=== PATIENT | male | born 1960 | race Caucasian/White ===

== ENCOUNTER 2019-08-12 11:00 | Inpatient (IN) | payer BC ==
--- NOTE | 2019-08-01 12:25 | HP ---
HISTORY AND PHYSICAL: DATE OF SURGERY: 08/12/19 DATE OF OFFICE VISIT: 08/01/19 SURGEON: Criss Hernandez MD.* (DICTATED BY EVY WILLS) PROCEDURE: Right total hip arthroplasty. CHIEF COMPLAINT: Right hip pain. HISTORY OF PRESENT ILLNESS: Mr. Marquez is a 58-year-old gentleman with continued complaints of right hip pain. He has failed conservative treatment and elected to proceed with a right total hip arthroplasty. PAST MEDICAL HISTORY: Hypertension, GERD, and AFib. PAST SURGICAL HISTORY: Cardiac ablation, partial left total knee arthroplasty, and left finger surgery. CURRENT MEDICATIONS: 1. Pantoprazole 30 and 40 mg a day. 2. Lisinopril 40 mg a day. 3. Meloxicam 15 mg a day. 4. Aspirin 325 two tabs twice a day. ALLERGIES: No known drug allergies. FAMILY HISTORY: Alzheimer's, hypertension, and stroke. SOCIAL HISTORY: He is a 58-year-old gentleman who lives alone. He does not smoke or use drugs. He uses occasional alcohol. REVIEW OF SYSTEMS: A complete 14-point review of systems was reviewed with the patient and is positive for GERD. He denies a history of DVT, PE, hepatitis, HIV or anesthesia problems. PHYSICAL EXAMINATION GENERAL: He is well developed, well nourished, in no acute distress. VITAL SIGNS: He stands 74 inches tall and weighs 288 pounds. His blood pressure 142/90, his heart rate is 82. HEENT: Normocephalic, atraumatic. NECK: Supple. No palpable lymph nodes. PULMONARY: Lungs are clear to auscultation bilaterally. CARDIO: Regular rate and rhythm. Strong S1, S2. ABDOMEN: Soft and nontender. MUSCULOSKELETAL: Right Lower Extremity: The skin is intact. There are no open wounds. No abrasions. He walks with an antalgic-type gait favoring his right hip. He has decreased internal and external rotation of the right hip. He is able to dorsiflex and plantar flex. He has 2+ dorsalis pedis pulse and intact sensation. ASSESSMENT AND PLAN: Mr. Marquez is a 58-year-old gentleman with end-stage osteoarthritis of the right hip. He has failed conservative treatment and elected to proceed with a right total hip arthroplasty. His surgery is scheduled for 08/12/[address] Hernandez. The risks and benefits were discussed with the patient at today's visit and all of his questions were answered. He will follow up with Dr. Hernandez 2 weeks after the surgery. EVY WILLS [id number]/[facility] #: [id number] ANDREW
[~2019-08-12 11:00] MED LIST: Acetaminophen IV 1GM/100ML * 1,000 MG/100 ML VIAL IVPB ONE; Buffered Lidocaine 1% SYRIN* 1 ML/SYRINGE INTRADERM ONE; Dexamethasone IV* 4 MG/ML 1 ML (4 MG) IV SLOW PU ONE; Gabapentin CAP(*) 300 MG PO ONE; Lactated Ringers 1000 ML Bag* 1,000 ML IV SCH; Tranexamic Acid 1,000 MG in NS 0.9% 50 ML* (outpatient use) IV SCH; celeCOXIB CAP* 200 MG PO ONE
[2019-08-12] MEDS ORDERED: Dexamethasone IV* 4 MG/ML 1 ML (4 MG) ONE (12:15)
[2019-08-12] MEDS ORDERED: Gabapentin CAP(*) 300 MG ONE (12:16)
[2019-08-12] MEDS ORDERED: ceFAZolin 2 GM in NS PREMIX(*) 2 GM/100 ML BAG IVPB ONE (12:16)
[2019-08-12] MEDS ORDERED: celeCOXIB CAP* 200 MG ONE (12:16)
--- OUTSIDE RECORDS SUMMARY | 2019-08-12 12:16 | XMS REPORT | Continuity of Care Document ---
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 Onset: 05/12/2019 Localized, primary osteoarthritis Criss Hernandez M.D. Onset: 05/12/2019 Localized, primary osteoarthritis of the pelvic Criss Hernandez M.D. Onset: 02/2019 region and thigh Social History Type Date Description Comments Sex Unknown ETOH Use Occasionally consumes alcohol Tobacco Use Start: Unknown Patient has never smoked Recreational Drug Use Denies Drug Use Smoking Status Reviewed: 08/01/19 Patient has never smoked Exercise Type/Frequency Exercises regularly Allergies, Adverse Reactions, Alerts Description No Known Drug Allergies Medications Active Medications SIG Qnty Indications Ordering Provider Date Oxycodone-Acetaminophe 1-2 tabs by 60tabs M16.11 Criss Hernandez M.D. 2018 n mouth every 12 5-325mg Tablets hours as needed for pain Pantoprazole Sodium 1 tab by mouth Sweet, Sara 40mg once daily M.MD Grey DR Lisinopril 1 tab by mouth Sweet, Sara 40mg Tablets once daily M.MD Amlodipine Besylate 1 tab by mouth Sweet, Sara 10mg once daily M.MD Tablets Aspirin Adult 2 tabs by mouth Unknown 325mg twice daily Tablets Meloxicam 1 by mouth Unknown 15mg Tablets every day Medications Administered in Office Medication SIG Qnty Indications Ordering Provider Date No Injection Criss Hernandez M.D. 05/12/2019 Injection Depomedrol 40MG Criss Hernandez M.D. 05/12/2019 Injection Celestone 3 mg and 3mg David Huang MD 04/18/2019 Injection Immunizations Description No Information Available Vital Signs Date Vital Result Comment 08/01/2019 9:00am Height 74 inches 6'2" Weight 288.00 lb Heart Rate 82 /min BP Systolic 142 mmHg BP Diastolic 90 mmHg Respiratory Rate 18 /min Body Temperature 97.0 F Pain Level 2 BMI (Body Mass Index) 37.0 kg/m2 05/12/2019 8:33am Height 74 inches 6'2" Weight 291.00 lb Heart Rate 70 /min BP Systolic 150 mmHg BP Diastolic 88 mmHg Body Temperature 97.0 F Pain Level 3 BMI (Body Mass Index) 37.4 kg/m2 Results Test Date Facility Test Result H/L Range Note Xray 05/12/2019 Physician Surgeon In House Inj/Aspir Major JT Or Bursa W/ <pending> US Procedures Date Code Description Status 08/01/2019 09475 FX OS Care (Calcaneal) Completed 05/12/201930013 Inj/Aspir Major JT Or Bursa W/ US Completed 04/18/2019 12184 Xray Knee 3 Views Completed 04/18/201920163 Inject/Drain Joint/Bursa Major W/O US Completed Medical Devices Description No Information Available Encounters Type Date Location Provider Dx Diagnosis Office Visit 05/12/2019 [facility] Criss Hernandez, M16.11 Unilateral primary 8:30a at [facility] osteoarthritis, right hip M17.11 Unilateral primary osteoarthritis, right knee Z96.652 Presence of left artificial knee joint M25.551 Pain in right hip M25.561 Pain in right knee M25.462 Effusion, left knee Office Visit 04/18/2019 [facility] M16.11 Unilateral primary 11:15a Orthopedics at [facility] osteoarthritis, [place] right hip M17.11 Unilateral primary osteoarthritis, right knee Z96.652 Presence of left artificial knee joint M25.551 Pain in right hip M25.561 Pain in right knee Assessments Date Code Description Provider 08/01/2019 M16.11 Unilateral primary osteoarthritis, right hip EVY Dinero 08/01/2019 M25.551 Pain in right hip EVY Dinero 05/12/2019 M16.11 Unilateral primary osteoarthritis, right hip Criss Hernandez M.D. 05/12/2019 M17.11 Unilateral primary osteoarthritis, right knee Criss Hernandez M.D. 05/12/2019 Z96.652 Presence of left artificial knee joint Criss Hernandez M.D. 05/12/2019 M25.551 Pain in right hip Criss Hernandez M.D. 05/12/2019 M25.561 Pain in right knee Criss Hernandez M.D. 05/12/2019 M25.462 Effusion, left knee Criss Hernandez M.D. 04/18/2019 M16.11 Unilateral primary osteoarthritis, right hip David Huang MD 04/18/2019 M17.11 Unilateral primary osteoarthritis, right knee David Huang MD 04/18/2019 Z96.652 Presence of left artificial knee joint David Huang MD 04/18/2019 M25.551 Pain in right hip David Huang MD 04/18/2019 M25.561 Pain in right knee David Huang MD Plan of Treatment Future Appointment(s):08/29/2019 10:15 am - Criss Hernandez M.D. at [facility] at Dyafvc7708/12/2019 12:30 pm - Anastacio Kelley PA-C at [facility] at Zlxvma2808/12/2019 12:30 pm - EVY Dinero at [facility] at Ctjpco5108/12/2019 12:30 pm - Criss Hernandez M.D. at [facility] at Gleenr4508/01/2019 - Cecile Marshall PAM16.11 Unilateral primary osteoarthritis, right hipFollow up:Follow up: 2 weeks after xoaskxzK93.551 Pain in right hipNew Xrays:Hip Right 2 Views And Pelvis 77001 - 72753, Ordered: 08/01/19 Functional Status Description No Information Available Mental Status Description No Information Available Referrals Description No Information Available
--- OUTSIDE RECORDS SUMMARY | 2019-08-12 12:16 | XMS REPORT | Continuity of Care Document ---
:1960 External Reference #:[id number] Author Name Criss Hernandez M.D. 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 n every 12 hours 5-325mg Tablets as needed for pain Pantoprazole Sodium 1 tab by mouth Sweet, Sara 40mg once daily MMD Ramesh Tablets Lisinopril 1 tab by mouth Sweet, Sara 40mg Tablets once daily MMD Ramesh Amlodipine Besylate 1 tab by mouth Sweet, Sara 10mg once daily MMD Ramesh Tablets Aspirin Adult 2 tabs by mouth [...] Test Result H/L Range Note Xray 05/12/2019 Counseling Psychologist In House Inj/Aspir Major JT Or Bursa W/ <pending> US Procedures Date Code Description Status 08/01/2019 96756 FX OS Care (Calcaneal) Completed 05/12/2019 81110 Inj/Aspir Major JT Or Bursa W/ US Completed 04/18/2019 97336 Xray Knee 3 Views Completed 04/18/201940744 Inject/Drain Joint/Bursa Major W/O US Completed Medical Devices Description No Information Available Encounters Type Date Location Provider Dx Diagnosis Office Visit 05/12/2019 [facility] Criss Hernandez M16.11 Unilateral primary 8:30a at [facility] osteoarthritis, right hip M17.11 Unilateral primary osteoarthritis, right knee Z96.652 Presence of left artificial knee joint M25.551 Pain in right hip M25.561 Pain in right knee M25.462 Effusion, left knee Office Visit 04/18/2019 [facility] M16.11 Unilateral primary 11:15a Orthopedics at [facility] osteoarthritis, [place] right hip M17.11 Unilateral primary osteoarthritis, right [...] 10:15 am - Criss Hernandez M.D. at [facility] at Cynfbx9408/12/2019 12:30 pm - Anastacio Kelley PA-C at [facility] at Iiqhzy7708/12/2019 12:30 pm - EVY Dinero at [facility] at Ntoobx1108/12/2019 12:30 pm - Criss Hernandez M.D. at [facility] at Mappin4408/01/2019 - Cecile Marshall PAM16.11 Unilateral primary osteoarthritis, right hipFollow up:Follow up: 2 weeks after tswfeoiM41.551 Pain in right hip Functional Status Description No Information Available Mental Status Description No Information Available Referrals Description No Information Available
[2019-08-12] MEDS ORDERED: Acetaminophen IV 1GM/100ML * 100 ML ONE (13:07)
[2019-08-12] MEDS ORDERED: ROPIVACAINE 5 MG/ML 30 ML BTL (0.5%) ONE ×2 (13:11→14:32)
[2019-08-12] MEDS ORDERED: Ropivacaine (OR use only) 2 MG/ML 10 ML ONE ×2 (13:11→14:33)
[2019-08-12] MEDS ORDERED: Ondansetron INJ* 2 MG/ML VIAL ONE (13:23)
[2019-08-12] MEDS ORDERED: Midazolam* 1 MG/ML 5 ML VIAL (5 MG) ONE (13:23)
[2019-08-12] MEDS ORDERED: KETAMINE HCL* 50 MG/ML 10 ML VIAL ONE (13:23)
[2019-08-12] MEDS ORDERED: fentaNYL* 50 MCG/ML 2 ML VIAL (100 MCG VIAL) ONE ×3 (13:23→17:31)
[2019-08-12] MEDS ORDERED: Propofol* 10 MG/ML 20 ML BTL ONE (13:23)
[2019-08-12] MEDS ORDERED: HYDROmorphone INJ1* 1 MG/ML SYRINGE IV PRN (15:52)
[2019-08-12] MEDS ORDERED: Ondansetron INJ* 2 MG/ML VIAL IV PRN ×2 (15:52→16:20)
[2019-08-12] MEDS ORDERED: DiMENhydriNATE IV* 50 MG/ML VIAL IV PUSH PRN (15:52)
[2019-08-12] MEDS ORDERED: Naloxone* 0.4 MG/ML 1 ML VIAL IV PRN (15:52)
[2019-08-12] MEDS ORDERED: diPHENhydraMINE IV* 50 MG/ML 1 ml VIAL (BENADRYL) IV PRN (16:20)
[2019-08-12] MEDS ORDERED: Polyethylene Glycol 3350* 17 GM PACKET PO PRN (16:20)
[2019-08-12] MEDS ORDERED: diPHENhydraMINE PO* 25 MG PO PRN (16:20)
[2019-08-12] MEDS ORDERED: Ondansetron TAB* 4 MG PO PRN (16:20)
[2019-08-12] MEDS ORDERED: Ondansetron ODT TAB* 4 MG PO PRN (16:20)
[2019-08-12] MEDS ORDERED: Morphine INJ* 2 MG/ML 1 ML SYRINGE (TWO MG - NEW SYRINGE VERSION) IV PRN (16:20)
[2019-08-12] MEDS ORDERED: Magnesium Hydroxide LIQ* 30 ML UDC PO PRN (16:20)
[2019-08-12] MEDS ORDERED: traMADol TAB* 50 MG PO PRN (16:20)
[2019-08-12] MEDS ORDERED: Lactated Ringers 1000 ML Bag* 1,000 ML IV SCH (17:00)
--- NOTE | 2019-08-12 17:10 | OP ---
Operative Report - Blank - Operative Report Date of Operation: 08/12/19 Note: YAMILET TATE 1960 Date Of Surgery: 08/12/19 Criss Hernandez MD Apprentice Instrument Technician: Vanna RATLIFF did help throughout the procedure with preparation of the hip, wound retraction, manipulation of the hip, and wound closure. Anesthesiologist: Vanna Castillo MD Anesthesia Type: Spinal Preoperative Diagnosis: Right severe degenerative osteoarthritis of the hip Postoperative Diagnosis: As above Procedure Performed: Right Total Hip Arthroplasty Complications: None Specimen: Femoral head and acetabular reamings sent to pathology. Hardware used: This is uncemented [place] total hip arthroplasty hardware for the femur a size 8 accolade II with 127 neck angle femoral component, for the acetabulum a size 56F trident II tritanium cluster hole shell, a single 20 mm screw, for the insert a size 40 F trident X3 polyethylene insert, and for the femoral head a size 40 + 0 ceramic biolox V40 femoral head. Brief history/Indication: YAMILET TATE was known in clinic and had a history of severe right hip pain. He failed conservative treatment with anti-inflammatories , pain pills, intra-articular injections and physical therapy. He elected to undergo right total hip arthroplasty due to continued pain and decreased quality of life. Radiographs showed severe end stage osteoarthritis of the hip with bone on bone contact. Informed consent was obtained from the patient. He understood the risks of surgery included but were not limited to: bleeding, infection, damage to nearby structures, intraoperative fracture, nerve palsy, failure of the hardware, early loosening, stiffness or loss of motion, dislocation, leg length discrepancy, anesthesia complications, stroke, heart attack, blood clot and . He wished to proceed. Intra-Operative findings: Intraoperatively the patient was noted to have severe loss of cartilage of the acetabulum and femoral head. Description of the Procedure: YAMILET TATE was identified in the preanesthesia unit. His right hip was marked as the correct operative side. Informed consent was signed and placed in the chart. The patient was taken to the operating room and placed under anesthesia without complication. A toro catheter was placed. The patient was placed on the peg board with all bony prominences well padded. The right lower extremity was prepped and draped in the usual sterile fashion. Preoperative time-out was made to correctly identify the patient, side and site. Appropriate intraoperative antibiotics were given within one hour of incision. A standard posterior incision was made and carried sharply down to the lateral fascia. A new 10 blade was used to make an incision in the fascia in line with the skin incision. A charnley retractor was placed. The piriformis and conjoined tendons were identified and elevated off the posterolateral femur using electrocautery. These were tagged with number 5 Ethibond. Next electrocautery was used to make a posterolateral capsular flap and this was tagged with number 5 Ethibonds. The hip was carefully dislocated. Lesser trochanter to the center of the femoral head was measured at 60 mm. The oscillating saw was used to make the femoral neck cut. The femoral head was carefully removed. The femur was retracted anteriorly and the acetabular retractors were placed. Long-handled knife was used to sharply remove any remaining labrum from the acetabular rim. The acetabulum was sequentially reamed up to a size 56. A bleeding subchondral bone bed was obtained. A trial liner was placed and had excellent fit and stability. A 56F cup with a 20mm screw was placed and had excellent stability with appropriate anteversion and abduction angle. A size 40 F polyethylene liner was impacted into the acetabular shell. The liner was checked for stability and was stable. Next attention was turned to preparation of the femoral canal. A canal finder was used to enter the proximal femur. The femoral canal was sequentially broached up to a size 8 femoral broach trial. A trial neck and 40 + 0 trial femoral head was chosen. Lesser trochanter to center of the femoral head measurement was satisfactory. The hip was reduced and taken through a range of motion. The hip was stable in all positions with good soft tissue tension and appropriate leg lengths. The hip was dislocated and all trials were removed. The final implant chosen was a accolade II size 8 with 127 neck angle. This stem was impacted into the femoral canal without difficulty. The stem was stable with appropriate anteversion. The femoral head chosen was a 40 +0 ceramic head. The head was impacted onto the femoral neck without difficulty. The final lesser trochanter to center of the femoral head measurement was satisfactory. The hip was reduced and taken through a range of motion. The hip was stable in all positions with good soft tissue tension and appropriate leg lengths. The hip was copiously irrigated with sterile saline. The previously tagged capsule and tendons were repaired to the posterolateral femur through two trochanteric drill holes. The lateral fascia layer was closed using number 1 vicryls. The rest of the incision was closed in a layered fashion using 0 and 2-0 vicryls. The skin was closed using 3-0 monocryl suture and Dermabond. Sterile adaptic, 4x4s and paper tape was used to cover the incision. The patients anesthesia was reversed without difficulty. He was taken to the PACU in stable condition. Intended weight-bearing will be as tolerated with posterior hip precautions.
[2019-08-12] MEDS: fentaNYL* 50 MCG/ML 2 ML VIAL (100 MCG VIAL) IV PRN ×2 (17:33→17:45)
--- NOTE | 2019-08-12 19:51 | CONS ---
CONSULTATION REPORT: DATE OF CONSULT: 08/12/19 REQUESTING PROVIDER: Dr. Hernandez REASON FOR CONSULT: General co-medical management. HISTORY OF PRESENT ILLNESS: This is a 58-year-old male with a past medical history significant for G ERD, hypertension, and AFib, who was admitted on 08/12/19, status post a right total hip replacement after failing conservative outpatient management. Hospital Medicine was consulted for general co-med ical management. The patient was seen in the PACU, resting in bed, was reporting 6/10 pain to the rig ht hip. Denied any chest pain or shortness of breath. No noted heart rate to be irregular on the mo nitor as well as with auscultation. Denied any feelings of palpitations. EKG and labs ordered. PAST MEDICAL HISTORY: Hypertension, GERD, and AFib. PAST SURGICAL HISTORY: Cardiac ablation, partial left total knee arthroplasty, left finger surgery. MEDICATIONS: 1. Pantoprazole 40 mg p.o. q.a.m. 2. Meloxicam 15 mg p.o. q.a.m. 3. Amlodipine 20 mg p.o. q.a.m. 4. Aspirin 325 mg p.o. q.a.m. 5. Hydrocodone/acetaminophen 1 to 2 tabs p.o. q.12 hours p.r.n. ALLERGIES: No known drug allergies. FAMILY HISTORY: Significant for Alzheimer's, hypertension, and stroke. SOCIAL HISTORY: Denies smoking tobacco or recreational substance use. Drinks about 3 to 4 times a w [employer] [place], a couple beers at time. Lives alone. REVIEW OF SYSTEMS: An 11-point system review was performed, it was positive for right knee pain and intermittent numbness and tingling to the right lower extremity. PHYSICAL EXAM: Vital Signs: 97.2 Fahrenheit, 71 pulse, 15 resps, 95% oxygen on room air, and 158/98 blood pressure. General: This is an obese gentleman seen resting in bed, no acute distress noted. Eyes: Conjunctivae pink and moist. PERRLA. EOMs intact. ENT: Mucous membranes moist. Oropharynx clear. Cardiac: S1, S2. Heart rate irregular. No murmurs, gallops, or rubs appreciated. Respirato ry: Lung sounds diminished but clear throughout bilaterally on room air. Abdomen: Large, soft, nont ada. Positive bowel sounds x4. : Acuña draining medium clear yellow urine. Musculoskeletal: Able to perform bilateral ankle pumps and move all toes, though limited movement to the right lower e xtremity due to anesthesia, 5/5 strength in upper extremities. No clubbing or cyanosis appreciated. Skin: Dressing intact to the right lateral hip. Neuro: Again, decreased sensation intact to the r ight lower extremity. No focal deficits appreciated. Psych: Alert and oriented x4. Thought conten t organized. DIAGNOSTIC STUDIES/LAB DATA: No lab data. Pelvis x-ray showed the right total hip prosthetic to be in proper position. ASSESSMENT: My impression is that this is a 58-year-old male with a past medical history of hyperten joe, gastroesophageal reflux disease, and atrial fibrillation, who was admitted on 08/12/19 status p ost a right total hip replacement after failing outpatient conservative management. Hospitalists con nannetteted for medical co- management. PLAN: 1. Right total hip replacement. PT/OT, pain, and bowel management as per Ortho. Acuña catheter to b e removed in a.m. Saline lock when tolerating p.o. Plans to go home after hospital stay. 2. Cardiac arrhythmia. Per the bedside monitor, it appears to be normal sinus rhythm with frequent PACs. We will obtain 12 lead EKG. Check BMP and mag tonight. Place the patient on hospital monitor ing. 3. GERD. May continue pantoprazole. No reports of indigestion at this time. 4. AFib. Problem resolved after cardiac ablation, which is why he is not on any anticoagulants. 5. DVT prophylaxis: The patient to continue apixaban and SCDs as per Ortho. 6. Code status is full code. Thank you for allowing us to participate in the care of this patient. We will follow during this adm ission. [id number]/[facility] #: [id number]
[2019-08-12] MEDS ORDERED: oxyCODONE/Acetamin 5/325 MG* TAB ONE (20:35)
[2019-08-12] MEDS ORDERED: Cyclobenzaprine TAB* 10 MG ONE (20:35)
[2019-08-12] MEDS: oxyCODONE/Acetamin 5/325 MG* TAB PO PRN (20:37)
[2019-08-12] MEDS: Cyclobenzaprine TAB* 10 MG PO PRN (20:38)
[2019-08-12 21:00] LABS: BUN/Creatinine Ratio 19.4 (8-20); Calcium 9.2 mg/dL (8.6-10.3); EGFR African American 147.9 (>60); EGFR Non-African American 122.3 (>60); Magnesium 1.8 mg/dL (1.9-2.7); Potassium 3.8 mmol/L (3.5-5.0)
[2019-08-12 21:02] LABS: Troponin I 0.01 ng/mL (<0.04)
[2019-08-12] MEDS ORDERED: Magnesium Sulfate 2 GM IV* 2 GM/50 ML BAG IVPB ONE (21:26)
[2019-08-12] MEDS: Acetaminophen TAB* 325 MG PO SCH (22:18)
[2019-08-12] MEDS: Magnesium Hydroxide LIQ* 30 ML UDC PO SCH (22:18)
[2019-08-12] MEDS: Docusate CAP* 100 MG PO SCH (22:18)
[2019-08-12] MEDS ORDERED: ceFAZolin 1 GM ADVAN(*) 1 GM in NS 0.9% 50 ML* 50 ML IVPB SCH (23:30)
[2019-08-13] MEDS: ceFAZolin 1 GM ADVAN(*) 1 GM in NS 0.9% 50 ML* 50 ML IVPB SCH ×3 (02:26→17:32)
[2019-08-13] MEDS: Acetaminophen TAB* 325 MG PO SCH ×2 (06:01→14:01)
[2019-08-13] MEDS: oxyCODONE/Acetamin 5/325 MG* TAB PO PRN ×3 (06:15→17:55)
[2019-08-13 06:46] LABS: Hematocrit 38 % (42-52); Mean Platelet Volume 7.4 fL (7.4-10.4); Platelet Count 239 10^3/uL (150-450)
[2019-08-13 06:54] LABS: BUN/Creatinine Ratio 20.7 (8-20); Calcium 8.9 mg/dL (8.6-10.3); EGFR African American 109.4 (>60); EGFR Non-African American 90.4 (>60)
[2019-08-13] MEDS: oxyCODONE TAB* 5 MG TAB PO PRN ×2 (08:24→14:04)
[2019-08-13] MEDS ORDERED: Pantoprazole TAB * 40 MG TAB PO SCH (09:00)
[2019-08-13] MEDS ORDERED: Lisinopril TAB* 10 MG PO SCH (09:00)
[2019-08-13] MEDS ORDERED: amLODIPine TAB* 5 MG PO SCH (09:00)
[2019-08-13] MEDS ORDERED: Apixaban* 2.5 MG TAB PO SCH (09:00)
[2019-08-13] MEDS ORDERED: Vitamin THERAPEUTIC TAB PO SCH (09:00)
[2019-08-13] MEDS: Docusate CAP* 100 MG PO SCH (09:07)
[2019-08-13] MEDS: Magnesium Hydroxide LIQ* 30 ML UDC PO SCH (09:19)
--- NOTE | 2019-08-13 11:38 | PN ---
Progress Note - Progress Note Date of Service: 08/13/19 SOAP: Subjective: [] Pt seen at bedside.He feels well with well controlled right hip pain. Denies CP, SOB, dizziness, nausea. Walked with PT today, progressing well towards goals Objective: []Gen: NAD, appears well RLE: Right hip dressing changed, incision CDI. thigh soft, df/pf intact, DP2+, sensation intact to light touch distally Calves supple and nontender without erythema, edema or palpable cords Assessment: []POD [address] Hernandez Plan: []WBAT PT/OT Posterior hip precautions eliquis 2.5 mg po BID x 30 days post op. Discussed with hospitalist, okay to hold aspirin while on eliquis and restart once post op dvt prophy complete Vital Signs Temp 98.1 F 08/13/19 11:19 Pulse 77 08/13/19 11:19 Resp 14 08/13/19 11:19 BP 124/73 08/13/19 11:19 Pulse Ox 97 08/13/19 11:19 Intake & Output 08/12/19 08/13/19 08/13/19 18:59 06:59 18:59 Intake Total 1500 1300 981 Output Total 1300 1500 550 Balance 200 -200 431 Weight 288 lb 9.6 oz Intake: IV Fluids 1500 981 LR 1500 981 Oral 1300 Output: Urine 500 550 Acuña 1300 1000 Laboratory Last Values Hgb 13.0 g/dL (14.0-18.0) L 08/13/19 06:28 Hct 38 % (42-52) L 08/13/19 06:28 Plt Count 239 10^3/uL (150-450) 08/13/19 06:28 MPV 7.4 fL (7.4-10.4) 08/13/19 06:28 Sodium 134 mmol/L (135-145) L 08/13/19 06:28 Potassium 4.0 mmol/L (3.5-5.0) 08/13/19 06:28 Chloride 102 mmol/L (101-111) 08/13/19 06:28 Carbon Dioxide 25 mmol/L (22-32) 08/13/19 06:28 Anion Gap 7 mmol/L (2-11) 08/13/19 06:28 BUN 18 mg/dL (6-24) 08/13/19 06:28 Creatinine 0.87 mg/dL (0.67-1.17) 08/13/19 06:28 Est GFR ( Amer) 109.4 (>60) 08/13/19 06:28 Est GFR (Non-Af Amer) 90.4 (>60) 08/13/19 06:28 BUN/Creatinine Ratio 20.7 (8-20) H 08/13/19 06:28 Glucose 190 mg/dL (70-100) H 08/13/19 06:28 Calcium 8.9 mg/dL (8.6-10.3) 08/13/19 06:28 Magnesium 1.8 mg/dL (1.9-2.7) L 08/12/19 20:36 Troponin I 0.01 ng/mL (<0.04) 08/12/19 20:36
--- NOTE | 2019-08-13 11:49 | DS ---
Orthopedic Discharge Summary - Discharge Summary Date of Admission:08/12/19 Date of Discharge: 08/13/19 Date of Surgery: 08/12/19 Attending Orthopedic Provider: Dr Hernandez Pre-operative Diagnosis: Right hip osteoarthritis Operative Procedure: right total hip replacement Disposition of Patient: home with outpatient PT Condition of Patient: stable History: YAMILET TATE is a 58 year old M with years of increasingly severe right hip pain. Patient has failed conservative management and has elected to undergo a right total hip replacement Hospital Course: YAMILET was admitted to [facility] on 08/12/19. Patient underwent a right total hip replacement without complication followed by a brief recovery in PACU and transfer to the Short Stay Surgical Unit in stable condition. Our hospitalist service, physical therapy and occupational therapy also participated in this patients care. Post-op day 1: patient was alert and in no acute distress. Dressing was clean, dry and intact. Operative extremity dorsiflexion and plantarflexion intact, sensation intact to light touch distally, DP2+. Prior to discharge: dressing was changed, incision was clean, dry and intact. Patient was deemed to be medically and orthopedically stable for discharge. Physical therapy goals were met. Home Medications Medication Instructions Recorded Confirmed Type Amlodipine Besylate [Norvasc] 20 mg PO QAM 08/01/19 08/12/19 History Lisinopril 40 mg PO QAM 08/01/19 08/12/19 History Pantoprazole TAB * [Protonix TAB*] 40 mg PO QAM 08/01/19 08/12/19 History Acetaminophen TAB* [Tylenol TAB*] 975 mg PO Q8HR tab 08/13/19 Rx Apixaban* [Eliquis*] 2.5 mg PO BID #60 tab 08/13/19 Rx Aspirin 325 mg PO QAM #0 08/13/19 08/12/19 Rx Docusate CAP* [Colace Cap*] 100 mg PO BID PRN #90 cap 08/13/19 Rx oxyCODONE/Acetamin 5/325 MG* 2 tab PO Q4H PRN #70 tab MDD 10 08/13/19 Rx [Percocet 5/325 TAB*] Discharge Instructions following Orthopedic Surgery: Activity: * Weight Bearing as tolerated * Continue physical therapy and occupational therapy exercises as shown * Start outpatient physical therapy Hip replacements: Continue Hip Precautions- do not cross legs or bend greater than 90 degrees/squat Wound care: * OK to shower on post-op day 3, no bathing, swimming, or submerging wound. * Use gentle soap, pat dry. Cover with gauze, CHASIDY wrap or tape. Call Orthopedic office for: * Increased drainage * Redness * Increased pain * Fever Go to ER with shortness of breath or chest pain. Diet: * Regular diet * Increase fluids and fiber to prevent constipation. * Continue to use stool softeners, call office if no bowel motion within 48 hours. Medications See Home Medication List in your packet for medications that you should take after discharge. DVT Prophylaxis: Increases bleeding tendency Eliquis Dosin.5 mg, 1 tab every 12 hours x 30 days DO NOT TAKE your daily Aspirin 325 mg daily while you are on eliquis. 30 days post op once you have complete your eliquis you should restart aspirin. Pain Control: Percocet Dosin/325 mg 1-2 tabs by mouth every 4-6 hours as needed for pain. Maximum of 10 tabs per day. hold for sedation and wean off as soon as pain allows. Please note that Percocet contains Tylenol (acetaminophen). Maximum daily dose of Tylenol is 4000 mg from all sources. Antibiotics are required prior to any dental work. FOLLOW UP: Follow up with [David] Within 10-14 days, call for appointment Please call our office with any questions or concerns ([phone]) [place] [facility] [place]
[2019-08-13] MEDS: Cyclobenzaprine TAB* 10 MG PO PRN (14:03)
[2019-08-13 15:53] VITALS: BP 123/73
[2019-08-14] MEDS ORDERED: Bisacodyl SUPP* 10 MG SUPP PR PRN (16:20)
== END 2019-08-13 18:37 | disposition home or self-care (01) | DRG 301 ==
LOC: AA 12:13 → SSU 19:23
PROVIDERS: ADMIT Orthopaedic Surgery Adult Reconstructive Orthopaedic Surgery; ATTEND Orthopaedic Surgery Adult Reconstructive Orthopaedic Surgery
PROC: 0SR904A Replacement of Right Hip Joint with Ceramic on Polyethylene Synthetic Substitute, Uncemented, Open Approach (ICD-10-PCS; principal; 2019-08-12 15:00)
DX: M16.11 Unilateral primary osteoarthritis, right hip (principal); I10 Essential (primary) hypertension; K21.9 Gastro-esophageal reflux disease without esophagitis; I48.91 Unspecified atrial fibrillation; Z96.652 Presence of left artificial knee joint; Z79.82 Long term (current) use of aspirin; Z79.899 Other long term (current) drug therapy; Z82.49 Family history of ischemic heart disease and other diseases of the circulatory system; Z82.3 Family history of stroke
CPT/HCPCS: 36415; 72170; 80048; 83036; 83735; 84484; 85014; 85018; 85049; 88304; 88311; 93005; A9270-GY; C1713; C1776; J0690; J1100; J2250; J2405; J2704; J2795; J3010; J3475